=== PATIENT | female | born 1985 | race Caucasian/White ===

== ENCOUNTER 2018-01-01 07:10 | Emergency (ER) | payer OTHER ==
[~2018-01-01] VITALS: Ht 160 cm; Wt 117.9 kg
[~2018-01-01 07:10] MED LIST: IBUPROFEN 800800 M1 PO; YASMIN 28 TABL1 EACH PO
[2018-01-01 10:46] LABS: BF RBC 1326935 /mm3; TOTAL CELL COUNT 3195 /mm3
[2018-01-01 10:56] LABS: CLARITY TURBID; COLOR RED; TOTAL VOLUME 35 ml
[2018-01-01] MEDS ORDERED: NORCO 5-325 TA1 EACH PO (10:59)
[2018-01-01 11:27] LABS: BF EOSINOPHILS 3 %; BF LYMPHOCYTES 21 %; BF MONOCYTES 1 %; BF POLYS 75 %
[2018-01-01 11:28] LABS: SOURCE RIGHT KNEE
[2018-01-01 12:20] VITALS: BP 134/75
[2018-01-05 08:45] LABS: SOURCE KNEE JOINT
== END 2018-01-01 12:21 | disposition home or self-care (01) ==
LOC: M.ERS 07:10
PROVIDERS: Emergency Medicine Emergency Medical Services
DX: M25.461 Effusion, right knee (principal); Z88.5 Allergy status to narcotic agent